=== PATIENT | male | born 2000 | race African-American/Black ===

== ENCOUNTER 2021-11-08 11:30 | Emergency (ER) | payer SELFPAY ==
[~2021-11-08] VITALS: Ht 177.8 cm; Wt 81.0 kg
[2021-11-08 11:48] VITALS: BP 128/65
[2021-11-08] MEDS ORDERED: IBUPROFEN 600MG TABLET PO STA (12:48)
== END 2021-11-08 18:03 | disposition home or self-care (01) ==
LOC: ER 11:30
DX: M25.561 Pain in right knee (principal); X50.1XXA Overexertion from prolonged static or awkward postures, initial encounter; Y93.89 Activity, other specified; Y92.89 Other specified places as the place of occurrence of the external cause
CPT/HCPCS: 99281

== ENCOUNTER 2024-07-06 23:22 | Emergency (ER) | payer OTHER ==
[~2024-07-06] VITALS: Ht 180.3 cm; Wt 84.0 kg
[2024-07-06 23:48] VITALS: O2SAT 100
[2024-07-07] MEDS: ACETAMINOPHEN 325MG TABLET PO ONE (01:41)
[2024-07-07 01:44] VITALS: BP 137/84; PULSE 68; RESP 20; TEMP 36.8; O2SAT 100
== END 2024-07-07 01:26 | disposition home or self-care (01) ==
LOC: ER 23:22
DX: F12.90 Cannabis use, unspecified, uncomplicated (principal); R51.9 Headache, unspecified
CPT/HCPCS: 99282

== ENCOUNTER 2024-11-09 22:40 | Emergency (ER) | payer OTHER ==
[~2024-11-09] VITALS: Ht 177.8 cm; Wt 80.0 kg
[2024-11-09 22:43] VITALS: TEMP 37; O2SAT 100
[2024-11-09] MEDS: SODIUM CHLORIDE 0.9% 1,000 ML IV ONE (22:45)
[2024-11-09] MEDS ORDERED: LORAZEPAM 1MG TABLET PO ONE (22:45)
[2024-11-09 23:13] LABS: BASOPHILS % 0.8 % (0.0-2.0); EOSINOPHILS % 0.7 % (0.0-5.0); HEMATOCRIT. 40.1 % (42.0-52.0); HEMOGLOBIN. 13.4 g/dL (14.0-18.0); LYMPHOCYTES % 27.4 % (20.0-50.0); MEAN CORPUSCULAR HGB CONC 33.3 g/dL (31.0-37.0); MEAN CORPUSCULAR VOLUME 89.9 fL (80.0-94.0); MEAN PLATELET VOLUME 8.5 fl (7.4-10.4); MONOCYTES % 10.3 % (2.0-8.0); NEUTROPHILS % 60.8 % (40.0-76.0); PLATELET 240 x1000/uL (130-400); RED BLOOD CELL COUNT 4.46 mill/uL (4.7-6.1); RED CELL DISTRIBUTION WIDTH 12.8 % (11.6-14.6); WHITE BLOOD COUNT 6.4 x1000/uL (4.5-11.0)
[2024-11-09 23:39] LABS: CHLORIDE 107 mEq/L (98-107); POTASSIUM 3.8 mEq/L (3.5-5.1); SODIUM 140 mEq/L (136-145)
[2024-11-09 23:40] LABS: CALCIUM 9.5 mg/dL (8.7-10.4); CARBON DIOXIDE 25 mEq/L (21-32)
[2024-11-09 23:45] LABS: CREATININE 1.2 mg/dL (0.6-1.3); GLUCOSE 112 mg/dL (70-105); UREA NITROGEN BLOOD < 5 mg/dL (9-23)
[2024-11-09 23:46] LABS: ETHANOL BLOOD < 10 mg/dL (<10)
[2024-11-09 23:52] LABS: TROPONIN I HIGH SENSITIVITY < 4 ng/L (3.0-53)
[2024-11-10] MEDS: LORAZEPAM 1MG TABLET PO SCH (00:30)
[2024-11-10] MEDS ORDERED: ACET-2708 MT (00:30)
[2024-11-10] MEDS ORDERED: PRED10TA MT (00:30)
[2024-11-10 00:32] VITALS: BP 131/76; PULSE 76; RESP 18; O2SAT 100
== END 2024-11-10 00:47 | disposition home or self-care (01) ==
LOC: ER 22:40
DX: R00.2 Palpitations (principal); R03.0 Elevated blood-pressure reading, without diagnosis of hypertension; F12.90 Cannabis use, unspecified, uncomplicated; F41.9 Anxiety disorder, unspecified
CPT/HCPCS: 80048; 80320; 85025; 85379; 84484; 36415; 93005; 96360; 99284; J7030; G0480